=== PATIENT | male | born 1940 | race African-American/Black ===

== ENCOUNTER 2020-02-21 13:00 | Emergency (ER) | payer OTHER ==
[~2020-02-21] VITALS: Ht 188 cm; Wt 118.0 kg
[2020-02-21] MEDS ORDERED: INSU100V3 SUBCUT (13:04)
[2020-02-21 14:49] LABS: BASOPHILS % 0.4 % (0.0-2.0); EOSINOPHILS % 0.6 % (0.0-5.0); HEMOGLOBIN. 12.4 g/dL (14.0-18.0); LYMPHOCYTES % 13.2 % (20.0-50.0); MEAN CORPUSCULAR HEMOGLOBIN 35.1 pg (28.0-32.0); MEAN CORPUSCULAR VOLUME 104.8 fL (80.0-94.0); MEAN PLATELET VOLUME 8.7 fl (7.4-10.4); MONOCYTES % 6.2 % (2.0-8.0); NEUTROPHILS % 79.6 % (40.0-76.0); PLATELET 286 x1000/uL (130-400); RED BLOOD CELL COUNT 3.53 mill/uL (4.7-6.1); RED CELL DISTRIBUTION WIDTH 16.6 % (11.6-14.6)
[2020-02-21 14:52] LABS: CHLORIDE 108 mEq/L (98-107)
[2020-02-21 15:46] LABS: CLARITY URINE CLEAR (CLEAR); COLOR URINE YELLOW (YELLOW); KETONES URINE NEGATIVE (NEGATIVE); LEUKOCYTE ESTERASE URINE NEGATIVE (NEGATIVE); NITRITE URINE NEGATIVE (NEGATIVE); OCCULT BLOOD URINE NEGATIVE (NEGATIVE); PROTEIN URINE 1+ (NEGATIVE); SPECIFIC GRAVITY URINE 1.018 (1.005-1.030)
[2020-02-21 16:12] LABS: INR 1.1; PROTHROMBIN TIME 11.1 sec (9.6-11.0)
[2020-02-21 18:43] VITALS: BP 145/70
== END 2020-02-21 19:17 | disposition short-term general hospital (02) ==
LOC: ER 13:00
DX: E10.649 Type 1 diabetes mellitus with hypoglycemia without coma (principal); R42 Dizziness and giddiness; I50.9 Heart failure, unspecified
CPT/HCPCS: 36415; 71045; 80053; 81003; 82962; 84484; 85025; 93005; 99285